=== PATIENT | male | born 1960 | race Caucasian/White ===

== ENCOUNTER 2017-05-18 06:00 | Day surgery (SDC) | payer OTHER ==
[2017-05-14 16:11] VITALS: BMI 31.0
[2017-05-18] MEDS ORDERED: TRANEXAMIC ACID 1000 MG/10 ML VIAL ONE ×2 (07:17→08:09)
[2017-05-18] MEDS ORDERED: VANCOMYCIN 1,000 MG VIAL (RESTRICTED TO ID ONLY) ONE (07:17)
--- NOTE | 2017-05-18 07:18 | HP ---
History & Physical Update - History History: No Change - Physical Physical: No Change - Assessment Assessment: No Change - Plan Plan: No Change
[2017-05-18] MEDS ORDERED: DEXAMETHASONE SOD PHOSPHATE/PF 10 MG/ML SDV ONE (07:19)
[2017-05-18] MEDS ORDERED: MIDAZOLAM HCL 2 MG/2 ML SINGLE DOSE VIAL ONE (07:19)
[2017-05-18] MEDS ORDERED: BUPIVACAINE HCL/PF (5 MG/ML) 30 ML VIAL IJ ONE (07:19)
[2017-05-18] MEDS ORDERED: ceFAZolin SODIUM 1 GM VIAL ONE (08:05)
[2017-05-18] MEDS ORDERED: PROPOFOL 20 ML ONE ×3 (08:11→08:18)
[2017-05-18] MEDS ORDERED: DEXAMETHASONE SOD PHOSPHATE 4 MG/1 ML VIAL ONE (08:14)
[2017-05-18] MEDS ORDERED: ONDANSETRON 4 MG/2 ML VIAL ONE (08:14)
[2017-05-18] MEDS ORDERED: SUCCINYLCHOLINE CHLORIDE 200 MG/10 ML VIAL ONE (08:18)
--- NOTE | 2017-05-18 10:05 | DS ---
Physical Examination Vital Signs: Vital Signs Temperature 98 F 05/18/17 06:23 Pulse Rate 59 L 05/18/17 06:23 Respiratory Rate 18 05/18/17 06:23 Blood Pressure 150/92 05/18/17 06:23 O2 Sat by Pulse Oximetry (%) 98 05/18/17 06:23 Discharge Summary Reason For Visit: ANTERIOR CRUCIATE LIGAMENT TEAR RIGHT KNEE Condition: Good - Instructions Diet, Activity, Other Instructions: Post Operative Instructions: ACL Reconstruction Dr. Migel Sims 1. Pain following an ACL reconstruction is variable and can be significant. Some patients will have more pain than others. You have been provided with a prescription for medication that contains a narcotic. You are not allowed to drive while on this medication. You can take Tylenol (Acetaminophen) when taking the pain medication. Feel free to take medications such as Ibuprofen or Naprosyn in addition to the pain medicine if you do not have any problems with the NSAID class of medications. TAKE 81MG OF ASPIRIN TWICE A DAY FOR TWO WEEKS. 2. You should not remove the bandages UNTIL SEEN IN THE OFFICE. 3. You are allowed to put all your weight on the leg and bend your knee... BUT MUST USE CRUTCHES FOR PROTECTION. 4. Getting the knee straight is your most important goal during the first 72 hours following an ACL reconstruction. Try not to lie down with a pillow under your knee. Instead the pillow should be under your ankle, thus allowing you to push your knee straight down into the bed. This is a very important milestone to achieve before your first post-surgery visit with me. 5. Swelling around the knee is normal following an ACL reconstruction. 6. The area around the knee and along the front of your joshua will also become swollen and black and blue. 7. Apply ice to the knee for 15 min every hour or so. You may continue this for as many days as you like. 8. Please call the office to schedule a visit to have your sutures removed. 9. If for any reason you believe you may have an infection or are concerned, please feel free to call me. I can be reached through our office number 24 hours a day. 10. Please call our office with any questions; we will review the surgical findings during your post operative visit. Disposition: HOME - Home Medications Comprehensive Discharge Medication List: Ambulatory Orders Sildenafil Citrate [Viagra] 50 mg PO ASDIR PRN 05/14/17 Ibuprofen/Diphenhydramine Cit [Advil Pm Caplet] 1 each PO HS PRN 05/18/17
--- NOTE | 2017-05-18 10:05 | OP ---
Operative Note - Note: Operative Date: 05/18/17 Pre-Operative Diagnosis: RIGHT KNEE ACL TEAR, MMT, Operation: RKA, PARTIAL MEDIAL MENISECTOMY, ACLR W/ B-PT-B GRAFT Post-Operative Diagnosis: Same as Pre-op Surgeon: Migel Sims Anesthesia: Spinal Operative Report Dictated: Yes
[2017-05-18] MEDS ORDERED: oxyCODONE HCL 5 MG TABLET PO PRN (11:11)
[2017-05-18] MEDS ORDERED: ONDANSETRON 4 MG/2 ML VIAL IVPUSH PRN (11:11)
[2017-05-18] MEDS ORDERED: LACTATED RINGERS SOLUTION 1,000 ML IV SCH (11:15)
[2017-05-18 11:42] VITALS: TEMP 98
[2017-05-18 12:22] VITALS: BP 132/75; PULSE 65
--- NOTE | 2017-05-18 13:04 | SURG ---
Surgery Head Of Biology Note Head Of Biology: Marjorie Cherry PA-C Date of Service: 05/18/17 Diagnosis: RIGHT KNEE ACL TEAR, MMT, Procedure: RKA, PARTIAL MEDIAL MENISECTOMY, ACLR W/ B-PT-B GRAFT I was present for the entirety of the operative procedure. For further detail, please refer to operative report. Visit type - Case Type Case Type: Scheduled Admission - Emergency Emergency Visit: No - New patient This patient is new to me today: Yes Date on this admission: 05/18/17
--- NOTE | 2017-05-22 13:13 | PATH ---
Surgical Pathology Report Patient Name: ANDIE HARRY Med. Rec. #: [id number] /Age/Gender: 1960 (Age: 56) / M Account: [id number] Location: [facility] AMBULATORY Taken: 05/18/2017 Received: 05/18/2017 Reported: 05/22/2017 Physicians: Migel Sims M.D. Specimen(s) Received A: RIGHT KNEE SHAVINGS B: BURSA RIGHT KNEE Clinical History Right ACL tear Final Diagnosis A. KNEE, RIGHT, ARTHROSCOPIC SHAVING: FIBROCARTILAGE WITH MYXOID DEGENERATIVE CHANGES, ALONG WITH PORTIONS OF SYNOVIUM AND HYALINE CARTILAGE. B. SOFT TISSUE, RIGHT KNEE, EXCISION: FIBROTIC SYNOVIAL CYST CONSISTENT WITH BURSA. Electronically Signed Santiago Stewart M.D. Gross Description A. Received in formalin, labeled "right knee shavings," is a 4.0 x 4.0 x 0.3 cm. aggregate of tao-yellow soft tissue fragments. A pharmaceutical sales representative portion is submitted in one cassette. B. Received in formalin labeled "bursa right knee," is a 3.8 x 2.4 x 0.3 cm aggregate of tao, irregular portions of soft tissue. Forest [employer] Conservation Worker sections are submitted in one cassette. 05/21/201705/21/2017
== END 2017-05-18 12:20 | disposition home or self-care (01) ==
LOC: FASU 06:00
PROVIDERS: ATTEND Orthopaedic Surgery
PROC: 0SBC4ZZ Excision of Right Knee Joint, Percutaneous Endoscopic Approach (ICD-10-PCS; 2017-05-18)
PROC: 0MBN0ZZ Excision of Right Knee Bursa and Ligament, Open Approach (ICD-10-PCS; 2017-05-18)
PROC: 0MRN47Z Replacement of Right Knee Bursa and Ligament with Autologous Tissue Substitute, Percutaneous Endoscopic Approach (ICD-10-PCS; principal; 2017-05-18 08:29)
DX: S83.511A Sprain of anterior cruciate ligament of right knee, initial encounter (principal); S83.241A Other tear of medial meniscus, current injury, right knee, initial encounter; M70.41 Prepatellar bursitis, right knee; M17.11 Unilateral primary osteoarthritis, right knee; X58.XXXA Exposure to other specified factors, initial encounter; Y93.9 Activity, unspecified; Y92.9 Unspecified place or not applicable
CPT/HCPCS: 88304-TC; 94760